=== PATIENT | female | born 1990 | race Asian ===

== ENCOUNTER → 2017-12-08 | Outpatient (CLI) | payer OTHER ==
[2017-12-08 09:09] LABS: HEMOGLOBIN A1C 5.8 % (4.0-6.0)
== END | disposition home or self-care (01) ==
LOC: RAH 08:05
PROVIDERS: ATTEND Obstetrics & Gynecology
DX: R10.2 Pelvic and perineal pain (principal); R71.8 Other abnormality of red blood cells
CPT/HCPCS: 36415; 76700; 76856; 83036; 84165